=== PATIENT | female | born 1970 | race Caucasian/White ===

== ENCOUNTER → 2020-02-23 | Outpatient (CLI) | payer BC ==
[~2020-02-23] MED LIST: AMOXIL500 MG PO; ENALAPRIL5 MG PO; GLYXAMBI1 TAB PO; INSULIN SC; METFORMIN1000 MG PO; SIMVASTATIN10 MG PO
== END | disposition home or self-care (01) ==
LOC: US 15:28
PROVIDERS: ATTEND Chiropractor Orthopedic
DX: M79.631 Pain in right forearm (principal); M75.41 Impingement syndrome of right shoulder; M25.811 Other specified joint disorders, right shoulder

== ENCOUNTER → 2020-04-02 | Outpatient (CLI) | payer BC | END | disposition home or self-care (01) | LOC: COVID19 08:45 | PROVIDERS: ATTEND Internal Medicine | DX: U07.1 COVID-19 (principal) ==

== ENCOUNTER 2020-12-28 20:22 | Emergency (ER) | payer BC ==
[~2020-12-28] VITALS: Ht 165.1 cm; Wt 83.9 kg
== END 2020-12-29 00:46 | disposition home or self-care (01) ==
LOC: ED 20:22
DX: S61.411A Laceration without foreign body of right hand, initial encounter (principal); Z88.8 Allergy status to other drugs, medicaments and biological substances; Z88.2 Allergy status to sulfonamides; W45.8XXA Other foreign body or object entering through skin, initial encounter; Y93.G1 Activity, food preparation and clean up; Y92.89 Other specified places as the place of occurrence of the external cause; Y99.8 Other external cause status